=== PATIENT | female | born 1970 ===

== ENCOUNTER 2021-08-03 10:52 | Inpatient (IN) | payer OTHER ==
[~2021-08-03] VITALS: Ht 160 cm; Wt 113.4 kg
[2021-08-03] MEDS ORDERED: VALSARTAN-HCTZ1 EAC3 PO (13:48)
[2021-08-03] MEDS ORDERED: ACID-PEP20 MG PO (13:49)
[2021-08-03] MEDS ORDERED: ZANAFLEX4 M1 PO (13:50)
[2021-08-03] MEDS ORDERED: ADVAIR HFA 230/12 GM IH (13:51)
[2021-08-03] MEDS ORDERED: PRILOSEC OTC20 MG PO (13:51)
[2021-08-03] MEDS ORDERED: SINGULAIR10 MG PO (13:51)
[2021-08-03] MEDS ORDERED: ESTR0.624 PO (13:52)
[2021-08-03] MEDS ORDERED: TOPROL XL100 M1 PO (13:52)
[2021-08-08] MEDS ORDERED: OMEPRAZOLE20 MG (11:11)
[2021-08-08] MEDS ORDERED: AMITRIPTYLINE H50 MG (11:11)
[2021-08-08] MEDS ORDERED: DOXYCYCLINE HY100 M2 (11:11)
[2021-08-08] MEDS ORDERED: DOXAZOSIN MESYLA4 MG (11:11)
[2021-08-08] MEDS ORDERED: METFORMIN HCL500 M4 (11:11)
[2021-08-08] MEDS ORDERED: FLURBIPROFEN100 MG (11:11)
[2021-08-08] MEDS ORDERED: NABUMETONE750 MG (11:11)
[2021-08-08] MEDS ORDERED: ALBUTEROL2.5 MG/3 M (11:12)
[2021-08-08] MEDS ORDERED: ZOLPIDEM TARTRA10 MG (11:12)
[2021-08-08] MEDS ORDERED: ATORVASTATIN CA40 MG (11:12)
== END 2021-08-10 19:22 | disposition home or self-care (01) | DRG 330 ==
LOC: SURH 08-08 07:55 → O/R 08-08 07:55 → SURH 08-08 11:00
PROVIDERS: ADMIT Colon & Rectal Surgery; ATTEND Colon & Rectal Surgery
PROC: 0DBP4ZZ Excision of Rectum, Percutaneous Endoscopic Approach (ICD-10-PCS; 2021-08-08)
PROC: 0DQE4ZZ Repair Large Intestine, Percutaneous Endoscopic Approach (ICD-10-PCS; 2021-08-08)
PROC: 0DTN4ZZ Resection of Sigmoid Colon, Percutaneous Endoscopic Approach (ICD-10-PCS; principal; 2021-08-08 11:00)
PROC: 4A12X4Z Monitoring of Cardiac Electrical Activity, External Approach (ICD-10-PCS; 2021-08-09)
DX: K57.32 Diverticulitis of large intestine without perforation or abscess without bleeding (principal); K92.1 Melena; E11.9 Type 2 diabetes mellitus without complications; Z79.4 Long term (current) use of insulin; J45.30 Mild persistent asthma, uncomplicated; G47.33 Obstructive sleep apnea (adult) (pediatric); I11.9 Hypertensive heart disease without heart failure